=== PATIENT | male | born 1985 | race Caucasian/White ===

== ENCOUNTER 2021-06-06 21:56 | Emergency (ER) | payer BC ==
[~2021-06-06] VITALS: Ht 172.7 cm; Wt 105.9 kg
[2021-06-07 00:54] LABS: BASOPHILS % 0.6 % (0.0-2.0); EOSINOPHILS % 3.3 % (0.0-5.0); HEMATOCRIT. 42.7 % (42.0-52.0); HEMOGLOBIN. 14.7 g/dL (14.0-18.0); LYMPHOCYTES % 33.8 % (20.0-50.0); MEAN CORPUSCULAR HEMOGLOBIN 29.6 pg (28.0-32.0); MEAN CORPUSCULAR VOLUME 86.3 fL (80.0-94.0); MEAN PLATELET VOLUME 10.9 fl (7.4-10.4); MONOCYTES % 6.6 % (2.0-8.0); NEUTROPHILS % 55.7 % (40.0-76.0); PLATELET 142 x1000/uL (130-400); RED BLOOD CELL COUNT 4.95 mill/uL (4.7-6.1); RED CELL DISTRIBUTION WIDTH 12.4 % (11.6-14.6)
[2021-06-07 01:00] LABS: CHLORIDE 107 mEq/L (98-107)
[2021-06-07] MEDS ORDERED: PIPERACILLIN/TAZ 3.375G PREMIX 50 ML IV ONE (01:00)
[2021-06-07] MEDS ORDERED: KETOROLAC 30MG/ML VIAL IV ONE (01:00)
[2021-06-07] MEDS ORDERED: SODIUM CHLORIDE 0.9% 1,000 ML IV ONE (01:00)
[2021-06-07] MEDS ORDERED: CEPH500T MT (02:40)
[2021-06-07] MEDS ORDERED: IBUP-2030 MT (02:40)
[2021-06-07 04:20] VITALS: BP 135/65
== END 2021-06-07 04:22 | disposition home or self-care (01) ==
LOC: ER 21:56
DX: M10.071 Idiopathic gout, right ankle and foot (principal)
CPT/HCPCS: 36415; 73630; 80048; 83605; 84145; 84550; 85025; 87040; 96365; 96375; 99284; J1885; J2543; J7030; Z7610